=== PATIENT | female | born 1945 | race Caucasian/White ===

== ENCOUNTER → 2017-02-01 | Outpatient (CLI) | payer MEDICARE, BC ==
[~2017-02-01] MED LIST: ALTACE; ANTARA; ANTARA PO; AVANDIA PO; BISOPROLOL/HCTZ1 TA3 PO; CHEWABLE ASPIRI81 MG PO; DIOVAN PO; DIOVAN160 MG PO; GLUCOVANCE 2.5/1 TA1; GLYNASE PO; GLYNASE PR; IBUPROFEN PO; KLONOPIN0.5 MG PO; LASIX PO; LIBRAX CAPSULE1 CAP; LIPITOR; MICRONASE5 M1 PO; NEXIUM; PREMARIN; ULTRAM PO; VITAMIN D-32000 UNI1 PO; ZIAC PO; [UNRECOGNIZED DRUG - OTHER] PO
--- NOTE | ~2017-02-01 | MR32 ---
[facility] A Service of [facility] & [facility] RADIOLOGY TEXT RESULTS PATIENT: TODD LAU LOCATION: [facility] : 47 UNIT #: [id number] AGE: [address]: Donna Coyne MD SEX: F ORDER DR: [id number] [address] [address] [id number] MR#: [id number] Acc #: [id number] NAME: TODD LAU : 1945 SEX: F STUDY DATE/TIME: 02/01/2017 13:49 UNIT: [facility] ROOM: STUDY DESCRIPTION: MR Cervical Wo Contrast Attending Physician: Donna Coyne M.D. Referring Physician: Donna Coyne M.D. Ordering Physician: Donna Coyne M.D. Primary Care Physician: Donna Coyne M.D. MRI CENTER REPORT This report is preliminary unless electronic signature is present. EXAM Cervical spine MRI without HISTORY Posterior neck pain from fall 11 days ago. Limited range of motion. Pain radiates into the bilateral trapezius and shoulder area. COMMENT MRI of the cervical spine performed without contrast using routine 1.5T wide-bore imaging technique. There is a prior study from 08/10/2007 for comparison. There is a cystic appearing structure at the anterior aspect of the odontoid about 7 mm in diameter and there is a small amount of adjacent marrow edema. 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 I do not have access to CT here and the findings are new when comparison is made to 2006. Sagittal alignment is normal. There is a tiny focus of signal abnormality within C6 vertebral body unchanged from previous and probably a small atypical hemangioma. Otherwise marrow signal intensity is unremarkable. There is no Chiari-I malformation. The cervical cord is normal in size and signal intensity. At C2-3, mild left-sided facet degenerative change, mild left side foraminal narrowing. No canal stenosis. At C3-4, mild bilateral facet degenerative change. No canal stenosis. Mild left-sided foraminal narrowing. At C4-5, mild right-sided facet degenerative change. Minor concentric STS. [facility] A Service of [facility] RADIOLOGY TEXT RESULTS PATIENT: TODD LAU LOCATION: [facility] : 47 UNIT #: [id number] AGE: [address]: Donna Coyne MD SEX: F ORDER DR: disc bulge. Mild effacement of the anterior thecal sac. Mild left foraminal narrowing. At C5-6, there is concentric disc osteophyte complex with uncovertebral osteophyte formation worse to the left side posterolaterally. There is mild facet degenerative change probably worse to the right. There is mild cord flattening and canal stenosis and there is severe left-side foraminal narrowing [id number] right-side foraminal narrowing. At C6-7, there is mild concentric disc bulge and endplate spondylosis. Mild right-side facet degenerative change, mild cord flattening and canal stenosis worse to the left. Mild left-side foraminal narrowing. At C7-T1, no canal stenosis. Asymmetric left-side facet degenerative change. No foraminal impingement. IMPRESSION 1. Recommend correlation with a CT of the cervical spine if not performed elsewhere given history of neck pain and recent trauma. There is what is likely a subchondral cyst in the anterior aspect of the odontoid process with a small amount of adjacent edema. 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 CT scanning is recommended to better assess for a nondisplaced fracture line. No fracture line appreciated on the MRI. 2. Cervical degenerative changes are detailed above most significant appearing radiographically C5-6, C6-7 where there is mild canal stenosis. Foraminal impingement is most severe on the left side at C5-6. See above. Dictated by... Park Black M.D. THIS IS AN ELECTRONICALLY VERIFIED REPORT Park Black M.D. at 02/02/2017 4:45 PM GUERRERO/feli TD: 02/02/2017 13:25 JOB #: [id number] MRI CENTER REPORT Page 1 of 1
== END | disposition home or self-care (01) ==
LOC: SMRI 09:03
DX: M54.2 Cervicalgia (principal); M48.02 Spinal stenosis, cervical region; M46.82 Other specified inflammatory spondylopathies, cervical region; M25.78 Osteophyte, vertebrae; M99.81 Other biomechanical lesions of cervical region; M50.823 Other cervical disc disorders at C6-C7 level
CPT/HCPCS: 72141

== ENCOUNTER → 2017-02-16 | Outpatient (CLI) | payer MEDICARE, BC ==
--- NOTE | ~2017-02-16 | CT52 ---
[facility] A Service of [facility] & [facility] RADIOLOGY TEXT RESULTS PATIENT: TODD LAU LOCATION: [facility] : 47 UNIT #: [id number] AGE: [address]: Donna Coyne MD SEX: F ORDER DR: [id number] [facility] [address] [place], [place] [address] [id number] O MR#: [id number] Acc #: [id number] NAME: TODD LAU : 1945 SEX: F STUDY DATE/TIME: 02/16/2017 15:01 UNIT: [facility] ROOM: STUDY DESCRIPTION: CT Cervical Spine Wo Cont Attending Physician: Donna Coyne M.D. Referring Physician: Donna Coyne M.D. Ordering Physician: Donna Coyne M.D. Primary Care Physician: Dnona Coyne M.D. MEDICAL IMAGING REPORT This report is preliminary unless electronic signature is present EXAM Cervical spine CT no contrast 02/16/2017. PROCEDURE Axial cervical spine CT without contrast with multiplanar reformats. This CT exam was performed with one or more of the following radiation dose reduction techniques: automatic exposure control, adjustment of mA and/or kV according to patient size, and iterative reconstruction. COMPARISON Cervical spine MRI 02/01/2017. CLINICAL HISTORY Lesion seen in the odontoid process on recent MRI; neck and right arm pain after fall on 01/21/2017. FINDINGS Alignment is normal. The cystic lesion seen on MRI has the typical CT appearance of a benign subchondral cyst. There is no evidence of pathologic fracture. There are accompanying degenerative changes at the atlantodental joint, as well, along with discogenic changes primarily at C5-6 and C6-7. There is no aggressive-appearing bone erosion or destruction at this or any level. The adjacent cervical soft tissues and lung apices are unremarkable. IMPRESSION Degenerative changes are seen in the cervical spine, including at the atlantodental joint. The lesion seen in the dens on the MR exam has the typical CT appearance of a benign geode. There is no evidence of pathologic fracture or other acute abnormality. [facility] A Service of [facility] & [facility] RADIOLOGY TEXT RESULTS PATIENT: TODD LAU LOCATION: [facility] : 47 UNIT #: [id number] AGE: [address]: Donna Coyne MD SEX: F ORDER DR: Dictated by... Devaughn Palacios M.D. THIS IS AN ELECTRONICALLY VERIFIED REPORT Devaughn Palacios M.D. at 02/18/2017 2:15 PM DUNCAN/denver TD: 02/17/2017 11:43 JOB #: [id number] MEDICAL IMAGING REPORT Page 1 of 1 COPY
== END | disposition home or self-care (01) ==
LOC: CCAT 14:08
DX: M85.60 Other cyst of bone, unspecified site (principal); M47.812 Spondylosis without myelopathy or radiculopathy, cervical region
CPT/HCPCS: 72125